=== PATIENT | female | born 1960 ===

== ENCOUNTER → 2025-03-16 08:01 | Outpatient (CLI) | payer OTHER ==
[~2025-03-16] VITALS: Ht 149.9 cm; Wt 59.0 kg
[~2025-03-16 08:01] MED LIST: AVAPRO150 MG PO; BUSPIRONE HCL10 MG PO; LIPITOR40 M1 PO; POVIDONE-IODINE 118 ML BOTT TOP ONE; TOPROL XL25 M1 PO
[2025-03-16 11:07] LABS: URINE APPEARANCE Clear; URINE BILIRRUBIN Negative (NEGATIVE); URINE BLOOD Negative; URINE COLOR Yellow; URINE GLUCOSE Negative (NEGATIVE); URINE KETONE Negative (NEGATIVE); URINE LEUKOCYTE Trace; URINE NITRATE Negative; URINE PROTEIN Negative (NEGATIVE); URINE UROBILINOGEN 0.2 E.U./dl
[2025-03-16 11:09] VITALS: BP 127/83; BP 147/92
[2025-03-16 11:13] LABS: URINE BACTERIA 934.4 uL (0.0-1933); URINE EPITHELIAL CELLS 6.9 uL (0.0-38.8); URINE RBC 7.0 uL (0.0-20.8); URINE WBC 17.6 uL (0.0-23.2)
[2025-03-16 11:21] LABS: BASO % 0.9 % (0.1-1.2); EOS # 0.52 (0.04-0.54); EOS % 6.5 % (0.7-7.0); LYMPH # 2.68 (1.18-3.74); LYMPH % 33.7 % (19.3-53.1); MEAN PLATELET VOLUME 11.50 fl (9.4-12.4); MONO # 0.61 (0.24-0.82); MONO % 7.7 % (4.7-12.5); NEUT # 4.05 (1.56-6.13); NEUT % 50.9 % (34.0-71.1); RED CELL DISTRIBUTION WIDTH 12.8 % (11.6-14.4)
[2025-03-16 11:29] LABS: URINE CAST 0.00 uL (0.0-1.40)
[2025-03-16 12:30] LABS: ALT/SGPT 26.0 U/L (12-78); AST/SGOT 16.0 U/L (15-37); BILIRUBIN TOTAL 0.43 mg/dL (0.3-1.2); BUN CREA RATIO 20.0 (7.0-25.0); CREATININE SERUM 0.97 mg/dL (0.55-1.02); GFR 57.28; GLOBULINA 3.3 G/DL (2.4-3.5); GLUCOSE FASTING 90.0 mg/dL (65-100); OSMOLALITY SERUM 287.0 MOSM/KG (275-295); TSH 0.912 uIU/mL (0.358-3.74)
[2025-03-16 12:54] LABS: INR < 0.93
== END | disposition home or self-care (01) ==
LOC: RAD 08:01 → ADM 08:15 → CIR.AMB 03-19 07:00 → EDSTATUS 04-02 08:15
PROVIDERS: ATTEND Obstetrics & Gynecology
DX: N21.0 Calculus in bladder (principal); D25.9 Leiomyoma of uterus, unspecified; N95.9 Unspecified menopausal and perimenopausal disorder; I10 Essential (primary) hypertension; J45.41 Moderate persistent asthma with (acute) exacerbation